=== PATIENT | male | born 1965 | race Asian ===

== ENCOUNTER 2016-12-10 22:22 | Emergency (ER) | payer MEDICAID ==
[~2016-12-10] VITALS: Ht 165.1 cm; Wt 72.6 kg
[~2016-12-10 22:22] MED LIST: ATEN50TA OR; BENA40TA7 OR
[2016-12-10] MEDS ORDERED: ACETAMINOPHEN 325 MG TAB PO ONE (23:00)
[2016-12-10] MEDS ORDERED: cloNIDine HCL 0.1 MG TAB PO ONE (23:00)
[2016-12-11 01:39] LABS: Basophils # (auto) 0.2 uL; Basophils % (auto) 1.8 % (0.0-2.0); Eosinophils # (auto) 0.4 uL; Eosinophils % (auto) 4.2 % (0.0-7.0); Hematocrit 43.5 % (41.0-53.0); Hemoglobin 14.5 g/dL (13.5-17.5); Lymphocytes # (auto) 2.4 uL; Lymphocytes % (auto) 25.2 % (10.0-50.0); Mean Corpuscular Hemoglobin 29.5 pg (28.0-32.0); Mean Corpuscular Hgb Conc. 33.4 g/dL (32.0-36.0); Mean Corpuscular Volume 88.3 fL (80.0-100.0); Mean Platelet Volume 7.9 fL (6.9-10.8); Monocytes # (auto) 0.7 uL; Monocytes % (auto) 6.7 % (0.0-12.0); Neutrophils % (auto) 62.1 % (37.0-80.0); Nucleated Red Blood Cells % 0.1 %; Platelet Count (auto) 287 10^3/uL (140-450); Red Cell Distribution Width 13.8 % (11.8-14.3); White Blood Cell 9.7 10^3/uL (4.4-10.8)
[2016-12-11 01:47] LABS: INR 0.87 (0.9-1.15); Partial Thromboplastin Time 29.2 sec (22.64-33.71); Prothrombin Time 9.5 sec (9.37-12.3)
[2016-12-11 01:57] LABS: Albumin 3.6 g/dL (3.4-5.0); BUN/Creatinine Ratio 12.8; Potassium 4.5 mmol/L (3.5-5.1)
[2016-12-11 02:00] LABS: Bilirubin, Total 0.3 mg/dL (0.2-1.0); Total Protein 7.7 g/dL (6.4-8.2)
[2016-12-11] MEDS ORDERED: hydrALAZINE HCL 20 MG/ML VL IV ONE (02:15)
[2016-12-11] MEDS ORDERED: HYDROcodone-ACET 5/325MG TAB PO ONE (03:00)
[2016-12-11 03:02] VITALS: BP 150/110
== END 2016-12-11 04:09 | disposition home or self-care (01) ==
LOC: ER 22:30
DX: I10 Essential (primary) hypertension (principal); R51 Headache; F17.210 Nicotine dependence, cigarettes, uncomplicated
CPT/HCPCS: 36415; 70450; 80053; 85025; 85610; 85730; 93005; 96374; 99285; J0360

== ENCOUNTER 2017-02-02 12:35 | Emergency (ER) | payer MEDICAID ==
[~2017-02-02] VITALS: Ht 165.1 cm; Wt 72.6 kg
[2017-02-02] MEDS ORDERED: COCAINE HCL 4% TOP SOL 4ML TOP ONE ×3 (12:49→13:30)
[2017-02-02] MEDS ORDERED: SODIUM CHLORIDE 0.9% 1,000 ML IV ONE (13:00)
[2017-02-02] MEDS ORDERED: hydrALAZINE HCL 20 MG/ML VL IV ONE (13:15)
[2017-02-02 13:18] LABS: Basophils # (auto) 0.1 uL; Basophils % (auto) 1.5 % (0.0-2.0); Eosinophils # (auto) 0.3 uL; Hematocrit 41.3 % (41.0-53.0); Hemoglobin 14.1 g/dL (13.5-17.5); Lymphocytes # (auto) 2.6 uL; Lymphocytes % (auto) 27.6 % (10.0-50.0); Mean Corpuscular Hemoglobin 29.9 pg (28.0-32.0); Mean Corpuscular Hgb Conc. 34.1 g/dL (32.0-36.0); Mean Corpuscular Volume 87.7 fL (80.0-100.0); Mean Platelet Volume 7.8 fL (6.9-10.8); Monocytes # (auto) 0.6 uL; Monocytes % (auto) 6.2 % (0.0-12.0); Neutrophils # (auto) 5.8 uL; Neutrophils % (auto) 61.7 % (37.0-80.0); Nucleated Red Blood Cells % 0.1 %; Platelet Count (auto) 296 10^3/uL (140-450); Red Cell Distribution Width 13.6 % (11.8-14.3); White Blood Cell 9.3 10^3/uL (4.4-10.8)
[2017-02-02 13:31] LABS: INR 0.87 (0.9-1.15); Partial Thromboplastin Time 28.5 sec (22.64-33.71); Prothrombin Time 9.5 sec (9.37-12.3)
[2017-02-02] MEDS ORDERED: ONDANSETRON HCL 4 MG/2 ML VIAL IV ONE (14:00)
[2017-02-02] MEDS ORDERED: HYDROmorphone HCL 2 MG/ML VL IV ONE (14:00)
[2017-02-02] MEDS ORDERED: cloNIDine HCL 0.1 MG TAB PO ONE (14:00)
[2017-02-02 14:03] LABS: Albumin 3.6 g/dL (3.4-5.0); BUN/Creatinine Ratio 13.3; Bilirubin, Total 0.5 mg/dL (0.2-1.0); Calcium 8.3 mg/dL (8.5-10.1); Total Protein 7.5 g/dL (6.4-8.2)
[2017-02-02] MEDS ORDERED: POTASSIUM CHL 20MEQ/50ML 50 ML IV ONE (14:30)
[2017-02-02] MEDS ORDERED: LABETALOL HCL 5 MG/ML ML 20ML VIAL IV ONE (14:30)
[2017-02-02 16:49] VITALS: BP 135/82
== END 2017-02-02 17:04 | disposition home or self-care (01) ==
LOC: ER 12:35
DX: R04.0 Epistaxis (principal); I10 Essential (primary) hypertension; F17.210 Nicotine dependence, cigarettes, uncomplicated
CPT/HCPCS: 30901; 36415; 80053; 85025; 85610; 85730; 86850; 86900; 86901; 96365; 96366; 96375; 99285; J0360; J1170; J2405

== ENCOUNTER 2018-03-28 17:01 | Emergency (ER) | payer MEDICAID ==
[~2018-03-28] VITALS: Ht 162.6 cm; Wt 72.6 kg
[2018-03-28] MEDS ORDERED: cloNIDine HCL 0.1 MG TAB PO ONE ×2 (17:30→19:15)
[2018-03-28 18:45] LABS: Basophils # (auto) 0.1 uL; Basophils % (auto) 0.6 % (0.0-2.0); Eosinophils # (auto) 0 uL; Eosinophils % (auto) 0.2 % (0.0-7.0); Hematocrit 47.4 % (41.0-53.0); Hemoglobin 15.9 g/dL (13.5-17.5); Lymphocytes % (auto) 10.6 % (10.0-50.0); Mean Corpuscular Hemoglobin 29.6 pg (28.0-32.0); Mean Corpuscular Hgb Conc. 33.6 g/dL (32.0-36.0); Mean Corpuscular Volume 87.9 fL (80.0-100.0); Monocytes # (auto) 0.4 uL; Monocytes % (auto) 3.6 % (0.0-12.0); Neutrophils # (auto) 8.3 uL; Platelet Count (auto) 271 10^3/uL (140-450); Red Blood Cells 5.39 10^6/uL (4.5-5.90); Red Cell Distribution Width 13.5 % (11.8-14.3); White Blood Cell 9.8 10^3/uL (4.4-10.8)
[2018-03-28] MEDS ORDERED: cloNIDine 0.2 mg/24hr 7DAY PATCH TD ONE (18:45)
[2018-03-28] MEDS ORDERED: ONDANSETRON HCL 4 MG/2 ML VIAL IV ONE (19:30)
[2018-03-28] MEDS ORDERED: MORPHINE SULFATE 10 MG/ML INJ 1ML SDV IV ONE (19:30)
[2018-03-28 19:51] LABS: Chloride 104 mmol/L (98-107); Potassium 3.5 mmol/L (3.5-5.1); Sodium 138 mmol/L (136-145)
[2018-03-28 19:59] LABS: Alanine Aminotransferase 21 U/L (16-61); Albumin 3.8 g/dL (3.4-5.0); Alkaline Phosphatase 117 U/L (45-117); Anion Gap 7 (5-15); Aspartate Aminotransferase 18 U/L (15-37); BUN/Creatinine Ratio 11.8; Bilirubin, Total 0.5 mg/dL (0.2-1.0); Blood Urea Nitrogen 15 mg/dL (7-18); Calcium 8.4 mg/dL (8.5-10.1); Carbon Dioxide 27 mmol/L (21-32); GFR African American 77 mL/min; GFR Non-African American 64 mL/min; Glucose 120 mg/dL (74-106); Total Protein 8.2 g/dL (6.4-8.2)
[2018-03-28] MEDS ORDERED: IOHEXOL 350 MG/ML 100ML IJ ONE (20:52)
[2018-03-28] MEDS ORDERED: LABETALOL HCL 5 MG/ML ML 20ML VIAL IV ONE (21:30)
[2018-03-28 22:48] VITALS: BP 146/107
== END 2018-03-28 23:00 | disposition short-term general hospital (02) ==
LOC: ER 17:05
DX: I72.8 Aneurysm of other specified arteries (principal); I16.0 Hypertensive urgency; I10 Essential (primary) hypertension; F17.210 Nicotine dependence, cigarettes, uncomplicated
CPT/HCPCS: 36415; 70450; 70496; 70498; 80053; 84484; 85025; 93005; 94761; 96374; 96375; 99285; J2270; J2405; Q9967

== ENCOUNTER 2018-06-07 11:25 | Emergency (ER) | payer MEDICAID ==
[~2018-06-07] VITALS: Ht 165.1 cm; Wt 77.1 kg
[2018-06-07 12:39] LABS: Basophils # (auto) 0.1 uL; Basophils % (auto) 1.2 % (0.0-2.0); Eosinophils # (auto) 0.3 uL; Eosinophils % (auto) 3.7 % (0.0-7.0); Hematocrit 39.3 % (41.0-53.0); Hemoglobin 13.1 g/dL (13.5-17.5); Lymphocytes # (auto) 1.8 uL; Lymphocytes % (auto) 20.4 % (10.0-50.0); Mean Corpuscular Hemoglobin 29.5 pg (28.0-32.0); Mean Corpuscular Hgb Conc. 33.3 g/dL (32.0-36.0); Mean Corpuscular Volume 88.7 fL (80.0-100.0); Monocytes # (auto) 0.8 uL; Monocytes % (auto) 8.5 % (0.0-12.0); Neutrophils # (auto) 5.9 uL; Neutrophils % (auto) 66.2 % (37.0-80.0); Nucleated Red Blood Cells % 0.1 %; Platelet Count (auto) 270 10^3/uL (140-450); Red Blood Cells 4.43 10^6/uL (4.5-5.90); Red Cell Distribution Width 13.7 % (11.8-14.3); White Blood Cell 8.8 10^3/uL (4.4-10.8)
[2018-06-07] MEDS ORDERED: IOHEXOL 350 MG/ML 100ML IJ ONE (12:48)
[2018-06-07 12:56] LABS: BUN/Creatinine Ratio 16.4; Calcium 8.3 mg/dL (8.5-10.1); Potassium 3.8 mmol/L (3.5-5.1)
[2018-06-07 14:15] VITALS: BP 137/93
== END 2018-06-07 14:50 | disposition home or self-care (01) ==
LOC: ER 11:25
DX: M54.2 Cervicalgia (principal); R51 Headache; I10 Essential (primary) hypertension; F17.210 Nicotine dependence, cigarettes, uncomplicated
CPT/HCPCS: 36415; 70496; 70498; 80048; 85025; 93005; 99284; Q9967

== ENCOUNTER 2022-02-19 00:16 | Emergency (ER) | payer MEDICAID ==
[~2022-02-19] VITALS: Ht 162.6 cm; Wt 75.0 kg
[~2022-02-19 00:16] MED LIST changes: -BENA40TA7 OR; +BENA40TA8 OR
[2022-02-19] MEDS ORDERED: METOCLOPRAMIDE HCL 5MG/ml INJ 2ml VIAL IM ONE (01:00)
[2022-02-19] MEDS ORDERED: KETOROLAC TROMETH 30 MG/ML 1ML VIAL IM ONE (01:00)
[2022-02-19] MEDS ORDERED: diphenhdrAMINE HCL 50 MG/1 ML VL IM ONE (01:00)
[2022-02-19] MEDS ORDERED: cloNIDine HCL 0.1 MG TAB PO ONE (01:00)
[2022-02-19 02:03] LABS: Basophils # (auto) 0.1 10 ^3/uL (0-0.2); Basophils % (auto) 0.8 % (0.0-2.0); Eosinophils # (auto) 0.3 10 ^3/uL (0-0.8); Eosinophils % (auto) 2.1 % (0.0-7.0); Hematocrit 48.8 % (41.0-53.0); Hemoglobin 15.7 g/dL (13.5-17.5); Lymphocytes # (auto) 1.5 10 ^3/uL (0.4-5.4); Lymphocytes % (auto) 10.7 % (10.0-50.0); Mean Corpuscular Hgb Conc. 32.3 g/dL (32.0-36.0); Monocytes # (auto) 0.8 10 ^3/uL (0-1.3); Monocytes % (auto) 5.3 % (0.0-12.0); Neutrophils # (auto) 11.6 10 ^3/uL (1.6-8.6); Neutrophils % (auto) 81.1 % (37.0-80.0); Red Blood Cells 5.42 10^6/uL (4.5-5.90); Red Cell Distribution Width 13.8 % (11.8-14.3); White Blood Cell 14.3 10^3/uL (4.4-10.8)
[2022-02-19 02:26] LABS: Potassium 3.5 mmol/L (3.5-5.1)
[2022-02-19 02:30] LABS: Albumin 3.5 g/dL (3.4-5.0); BUN/Creatinine Ratio 11.8; Calcium 8.9 mg/dL (8.5-10.1)
[2022-02-19 02:41] LABS: Bilirubin, Total 0.5 mg/dL (0.2-1.0); Total Protein 7.4 g/dL (6.4-8.2)
[2022-02-19 08:28] VITALS: BP 141/100
[2022-02-19] MEDS ORDERED: CLON0.1T PO (09:38)
[2022-02-19] MEDS ORDERED: HYDROcodone-ACET 10/325MG TAB PO ONE (10:15)
== END 2022-02-19 12:28 | disposition home or self-care (01) ==
LOC: ER 00:16
DX: G93.0 Cerebral cysts (principal); F17.210 Nicotine dependence, cigarettes, uncomplicated; Z98.890 Other specified postprocedural states
CPT/HCPCS: 36415; 70450; 71045; 80053; 84484; 85025; 96372; 99285; J1200; J1885; J2765

== ENCOUNTER 2023-05-29 21:49 | Emergency (ER) | payer MEDICAID ==
[~2023-05-29] VITALS: Ht 167.6 cm; Wt 72.6 kg
[~2023-05-29 21:49] MED LIST changes: +BENA40TA70 OR; -BENA40TA8 OR; +CLON0.1T PO
[2023-05-29] MEDS: IOHEXOL 350 MG/ML 100ML IJ ONE (22:19)
[2023-05-29 22:28] LABS: Basophils # (auto) 0.1 10 ^3/uL (0-0.2); Eosinophils # (auto) 0.4 10 ^3/uL (0-0.8); Eosinophils % (auto) 3.1 % (0.0-7.0); Hematocrit 38.2 % (41.0-53.0); Hemoglobin 12.5 g/dL (13.5-17.5); Lymphocytes % (auto) 25.4 % (10.0-50.0); Mean Corpuscular Hemoglobin 28.9 pg (28.0-32.0); Mean Corpuscular Hgb Conc. 32.6 g/dL (32.0-36.0); Mean Corpuscular Volume 88.7 fL (80.0-100.0); Monocytes # (auto) 0.8 10 ^3/uL (0-1.3); Neutrophils # (auto) 7.4 10 ^3/uL (1.6-8.6); Neutrophils % (auto) 63.5 % (37.0-80.0); Nucleated Red Blood Cells % 0.1 %; Red Blood Cells 4.31 10^6/uL (4.5-5.90); Red Cell Distribution Width 14.3 % (11.8-14.3); White Blood Cell 11.7 10^3/uL (4.4-10.8)
[2023-05-29 22:44] LABS: Alanine Aminotransferase 23 U/L (7-40); Albumin 3.7 g/dL (3.2-4.8); Alkaline Phosphatase 87 U/L (46-116); Anion Gap 7 (5-15); Aspartate Aminotransferase 26 U/L (13-40); BUN/Creatinine Ratio 9.3 (10.0-20.0); Bilirubin, Total 0.8 mg/dL (0.2-1.0); Blood Urea Nitrogen 18 mg/dL (9-23); Calcium 8.7 mg/dL (8.5-10.1); Carbon Dioxide 28 mmol/L (20-30); Chloride 106 mmol/L (98-107); Glucose 119 mg/dL (74-106); Potassium 2.6 mmol/L (3.5-5.1); Sodium 141 mmol/L (136-145); Total Protein 6.3 g/dL (5.7-8.2)
[2023-05-29 23:00] VITALS: PULSE 82; RESP 18; O2SAT 94
[2023-05-29] MEDS: POTASSIUM EFFERVESENT TAB 25 MEQ PO ONE (23:42)
[2023-05-30] MEDS: ONDANSETRON HCL 4 MG/2 ML VIAL IV ONE (00:31)
[2023-05-30] MEDS: MORPHINE SULFATE INJ 2 MG/ml SYRG IV ONE ×2 (00:32→02:04)
[2023-05-30] MEDS: LABETALOL HCL 5 MG/ML 4ML SYRINGE IV ONE ×3 (01:03→01:10)
[2023-05-30] MEDS: ESMOLOL HCL-NS 10MG/ML 250 ML IV SCH ×2 (01:08→01:17)
[2023-05-30] MEDS: ESMOLOL HCL (10MG/ML) 10 ML VIAL IV ONE (01:17)
[2023-05-30 02:40] VITALS: TEMP 97.3; O2SAT 97
[2023-05-30 02:47] VITALS: BP 133/77; PULSE 73; RESP 16
== END 2023-05-30 02:46 | disposition short-term general hospital (02) ==
LOC: EDBD 21:49 → EDUNIT# 21:49 → ER 21:49
DX: I71.03 Dissection of thoracoabdominal aorta (principal); I10 Essential (primary) hypertension; Z79.899 Other long term (current) drug therapy
CPT/HCPCS: 36415; 71045; 71275; 75635; 80053; 83605; 83880; 84484; 85025; 85379; 87040; 93005; 96365; 96375; 96376; 99285; J2270; J2405; J3490; Q9967

== ENCOUNTER 2024-02-10 21:01 | Emergency (ER) | payer MEDICAID ==
[~2024-02-10] VITALS: Ht 167.6 cm; Wt 81.8 kg
[~2024-02-10 21:01] MED LIST changes: -BENA40TA70 OR; +BENA40TA71 OR
--- NOTE | 2024-02-10 21:23 | ED.PDOC ---
History of Present Illness HPI Comments 58 y/o M, with a Hx of aortic disection and HTNl, presents with c/o non- radiating, left-sided chest pain, today. Patient endorses on sudden and unprovoked onset 5/10, intermittent pain underneath his left-breast at 1810. Patient comments on similar pain in the past when he had an "aortic dissection" that required surgical intervention at [facility]. Patient reports no additional relevant or pertinent Hx along with any recent stressors, injuries, sick contact, travel, spoiled food intake, or substance use/exposure. Patient denies having any shortness of breath, palpitations, nausea, vomiting, fever, chills, or other associated symptoms or modifiers at this time. Time Seen by MD: 21:10 Primary Care Provider: FERNANDO Forrester Notes: Nurses Notes, Medications, Allergies Allergies: Coded Allergies: NO KNOWN ALLERGIES (Unverified , 05/23/11) Home Meds Active Scripts Clonidine Hydrochloride (Clonidine Hcl) 0.1 Mg Tab, 0.1 MG PO BID for 10 Days, #20 MG Prov:STACEY HERNANDEZ MD 02/19/22 Reported Medications Atenolol (Atenolol) 50 Mg Tab, 50 MG OR 05/23/11 Benazepril Hcl (Benazepril Hcl) 40 Mg Tab, 40 MG OR 05/23/11 Information Source: Patient Mode of Arrival: Ambulatory Severity: Moderate Timing: Hours Duration: Intermittent Prehospital treatment: None Past Medical History PAST MEDICAL HISTORY: HTN Past Medical History (Other): aortic disection Surgical History: BKA (right-leg ) Family History Family History: Unknown Social History Smoker: Non-Smoker Alcohol: Occasionally Drugs: Denies Drug Use Lives In: Home Constitutional: denies: chills, diaphoresis, fatigue, fever, malaise, sweats, weakness, others EENTM: denies: blurred vision, double vision, ear bleeding, ear discharge, ear drainage, ear pain, ear ringing, eye pain, eye redness, hearing loss, mouth pain, mouth swelling, nasal discharge, nose bleeding, nose congestion, nose pain, photophobia, tearing, throat pain, throat swelling, voice changes, others Respiratory: denies: cough, hemoptysis, orthopnea, SOB at rest, shortness of breath, SOB with excertion, stridor, wheezing, others Cardiovascular: reports: chest pain; denies: dizzy spells, diaphoresis, Dyspnea on exertion, edema, irregular heart beat, left arm pain, lightheadedness, palpitations, PND, syncope, others Gastrointestinal: denies: abdomen distended, abdominal pain, blood streaked bowels, constipated, diarrhea, dysphagia, difficulty swallowing, hematemesis, melena, nausea, poor appetite, poor fluid intake, rectal bleeding, rectal pain, vomiting, others Genitourinary: denies: burning, dysuria, flank pain, frequency, hematuria, incontinence, penile discharge, penile sore, pain, testicle pain, testicle swelling, urgency, others Neurological: denies: dizziness, fainting, headache, left sided numbness, left sided weakness, numbness, paresthesia, pre-existing deficit, right sided numbness, right sided weakness, seizure, speech problems, tingling, tremors, weakness, others Musculoskeletal: denies: back pain, gout, joint pain, joint swelling, muscle pain, muscle stiffness, neck pain, others Integumetry: denies: bruises, change in color, change in hair/nails, dryness, laceration, lesions, lumps, rash, wounds, others Allergic/Immunocompromised: denies: Difficulty Healing, Frequent Infections, Hives, Itching, others Hematologic/Lymphatic: denies: anemia, blood clots, easy bleeding, easy bruising, swollen glands, others Endocrine: denies: excessive hunger, excessive sweating, excessive thirst, excessive urination, flushing, intolerance to cold, intolerance to heat, unexplained weight gain, unexplained weight loss, others Psychiatric: denies: anxiety, bipolar disorder, depression, hopeless, panic disorder, schizophrenia, sleepless, suicidal, others All Other Systems: Reviewed and Negative Physical Exam General Appearance: Moderate Distress, Normal HEENT: Normal ENT Inspection, Pharynx Normal, TMs Normal Neck: Full Range of Motion, Non-Tender, Normal, Normal Inspection Respiratory: Chest Non-Tender, Lungs Clear, No Accessory Muscle Use, No Respiratory Distress, Normal Breath Sounds Cardiovascular: No Edema, No JVD, No Murmur, No Gallop, Normal Peripheral Pulses, Regular Rate/Rhythm, Other (old thoracotomy scar noted) Breast Exam: Deferred Gastrointestinal: Non Tender, Soft Genitalia: Deferred Pelvic: Deferred Rectal: Deferred Extremities: No calf tenderness, Normal capillary refill, Normal inspection, Normal range of motion, Non-tender, No pedal edema Musculoskeletal : Apperance: Normal Neurologic: Alert, 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 Was a procedure done?: No EKG EKG : Pulse Rate (adult): 66 [place]: Normal Cardiac Rhythm: NSR Block: None Hypertrophy: None ST: Normal Differential Dx Considerations may include: AR, ACS, aortic dissection, angina, costochondritis, pericarditis, anxiety, viral syndrome X-Ray, Labs, Meds, VS Vital Signs Date Time Temp Pulse Resp B/P (MAP) Pulse Ox O2 Delivery O2 Flow Rate FiO2 02/11/24 01:50 139/77 02/10/24 23:27 57 16 139/77 02/10/24 22:57 64 16 132/66 02/10/24 22:10 62 02/10/24 21:23 66 02/10/24 21:09 98.2 66 18 141/75 (97) 96 02/10/24 21:09 66 Lab Test 02/10/24 22:20 02/10/24 21:15 Range/Units Troponin I High Sensitivity 11 11 </=54 ng/L White Blood Count 9.1 4.4-10.8 10^3/uL Red Blood Count 4.60 4.5-5.90 10^6/uL Hemoglobin 12.2 L 13.5-17.5 g/dL Hematocrit 37.4 L 41.0-53.0 % Mean Corpuscular Volume 81.2 80.0-100.0 fL Mean Corpuscular Hemoglobin 26.6 L 28.0-32.0 pg Mean Corpuscular Hemoglobin Concent 32.7 32.0-36.0 g/dL Red Cell Distribution Width 16.9 H 11.8-14.3 % Platelet Count 378 140-450 10^3/uL Mean Platelet Volume 7.7 6.9-10.8 fL Neutrophils (%) (Auto) 55.2 37.0-80.0 % Lymphocytes (%) (Auto) 26.2 10.0-50.0 % Monocytes (%) (Auto) 9.1 0.0-12.0 % Eosinophils (%) (Auto) 5.1 0.0-7.0 % Basophils (%) (Auto) 4.4 H 0.0-2.0 % Neutrophils # (Auto) 5.0 1.6-8.6 10 ^3/uL Lymphocytes # (Auto) 2.4 0.4-5.4 10 ^3/uL Monocytes # (Auto) 0.8 0-1.3 10 ^3/uL Eosinophils # (Auto) 0.5 0-0.8 10 ^3/uL Basophils # (Auto) 0.4 H 0-0.2 10 ^3/uL Nucleated Red Blood Cells 0.0 % Prothrombin Time 10.2 9.3-11.8 sec Prothrombin Time INR 0.96 0.9-1.15 Activated Partial Thromboplast Time 31.7 24.5-34.5 SEC Sodium Level 141 136-145 mmol/L Potassium Level 3.7 3.5-5.1 mmol/L Chloride Level 111 H 98-107 mmol/L Carbon Dioxide Level 21 20-31 mmol/L Anion Gap 9 5-15 Blood Urea Nitrogen 16 9-23 mg/dL Creatinine 1.60 H 0.700-1.30 mg/dL Glomerular Filtration Rate Calc 50 >90 mL/min BUN/Creatinine Ratio 10.0 10.0-20.0 Serum Glucose 113 H 74-106 mg/dL Calcium Level 9.8 8.7-10.4 mg/dL Total Bilirubin 0.4 0.2-1.0 mg/dL Aspartate Amino Transferase (AST) 12 L 13-40 U/L Alanine Aminotransferase (ALT) 12 7-40 U/L Alkaline Phosphatase 144 H 46-116 U/L B-Type Natriuretic Peptide 131.12 0-100 pg/mL Total Protein 7.9 5.7-8.2 g/dL Albumin 4.6 3.2-4.8 g/dL Current Medications Medications (Trade) Dose Ordered Sig/Shabbir Route Start Time Stop Time Status Last Admin Morphine Sulfate 2 mg ONCE ONCE IM 02/10/24 22:30 02/10/24 22:31 DC 02/10/24 22:57 Ondansetron HCl (Zofran) 4 mg ONCE ONCE IM 02/10/24 22:30 02/10/24 22:31 DC 02/10/24 22:57 Hydralazine HCl (Apresoline Injection) 10 mg ONCE ONCE IV 02/11/24 01:30 02/11/24 01:31 DC 02/11/24 01:[address] [address] Ph: [phone] DIAGNOSTIC IMAGING Diagnostic Imaging Report : [id number] Signed PATIENT: ALEX WESTFALL ACCT: [id number] UNIT: [id number] : 1965 LOC: ER ROOM / BED: / AGE / SEX: 58 / M ADM STATUS: REG ER SERVICE 02 ORDERING PHYSICIAN: LUCINA MARTINEZ MD PROCEDURE(s): CXRP - CHEST PORTABLE REASON: chest pain ORDER NUMBER(s): [id number], ACCESSION NUMBER(s): [id number] CHEST RADIOGRAPH Indication: chest pain Technique: Single frontal view of the chest was obtained Comparison: XY CHEST PORTABLE on DOS: 05/29/23, CHEST XRAY 1 VIEW on DOS: 02/19/22 FINDINGS: Lines and Tubes: None Lungs: Clear Pleura: No effusion. No pneumothorax. Cardiomediastinal contours: Unremarkable Bones: Unremarkable IMPRESSION: 1. Clear lungs. ATED BY: STEPAN CARSON DO DICTATED DATE/TIME: 02/10/242200 SIGNED BY: STEPAN CARSON DO SIGNED DATE/TIME: 02/10/242200 CC: Time of 1ST Reevaluation: 21:40 Reevaluation 1ST: Unchanged Time of 2ND Reevaluation: 01:58 Reevaluation 2ND: Unchanged Patient Education/Counseling: Diagnosis, Treatment Family Education/Counseling: No Family Present Additional Information I personally reviewed and interpreted the EKG, CT , xray and lab findings Departure 1 Departure Time of Disposition: 01:54 Impression: Primary Impression: Aortic dissection, thoracoabdominal Disposition: [facility] Condition: Critical Critical Care Note Critical Care Time?: Yes Critical care comment: Total critical care time: Approximately 36 minutes Due to a high probability of clinically significant, life threatening deterioration, the patient required my highest level of preparedness to intervene emergently and I personally spent this critical care time directly and personally managing the patient. This critical care time included obtaining a history; examining the patient; pulse oximetry; ordering and review of studies; arranging urgent treatment with development of a management plan; evaluation of patient's response to treatment; frequent reassessment; and, discussions with other providers. Stability Stability form required: No Heart Score Heart Score: Heart Score Response (Comments) Value History Moderate Suspicious 1 EKG Normal 0 Age 45-64 1 Risk Factors 1 or 2 risk factors 1 Troponin Normal limit 0 Total 3 I personally scribed for LUCINA MARTINEZ MD ([email or web address]) on 02/10/24 at 21:23. Electronically submitted by Chip Munoz ([email or web address]). I personally scribed for LUCINA MARTINEZ MD ([email or web address]) on 02/10/24 at 22:07. Electronically submitted by Chip Munoz ([email or web address]). LUCINA MARTINEZ MD Feb 10, 2024 21:23
[2024-02-10] MEDS: IOHEXOL 350 MG/ML 100ML IJ ONE (21:29)
[2024-02-10 21:39] LABS: Eosinophils # (auto) 0.5 10 ^3/uL (0-0.8); Eosinophils % (auto) 5.1 % (0.0-7.0); Lymphocytes # (auto) 2.4 10 ^3/uL (0.4-5.4); Mean Corpuscular Hemoglobin 26.6 pg (28.0-32.0); Monocytes # (auto) 0.8 10 ^3/uL (0-1.3)
[2024-02-10 21:40] LABS: Basophils # (auto) 0.4 10 ^3/uL (0-0.2); Basophils % (auto) 4.4 % (0.0-2.0); Hematocrit 37.4 % (41.0-53.0); Hemoglobin 12.2 g/dL (13.5-17.5); Lymphocytes % (auto) 26.2 % (10.0-50.0); Mean Corpuscular Hgb Conc. 32.7 g/dL (32.0-36.0); Mean Corpuscular Volume 81.2 fL (80.0-100.0); Monocytes % (auto) 9.1 % (0.0-12.0); Neutrophils % (auto) 55.2 % (37.0-80.0); Platelet Count (auto) 378 10^3/uL (140-450); Red Cell Distribution Width 16.9 % (11.8-14.3); White Blood Cell 9.1 10^3/uL (4.4-10.8)
[2024-02-10 21:58] LABS: Alanine Aminotransferase 12 U/L (7-40); Albumin 4.6 g/dL (3.2-4.8); Alkaline Phosphatase 144 U/L (46-116); Anion Gap 9 (5-15); Aspartate Aminotransferase 12 U/L (13-40); Bilirubin, Total 0.4 mg/dL (0.2-1.0); Blood Urea Nitrogen 16 mg/dL (9-23); Calcium 9.8 mg/dL (8.7-10.4); Carbon Dioxide 21 mmol/L (20-31); Chloride 111 mmol/L (98-107); Glucose 113 mg/dL (74-106); Potassium 3.7 mmol/L (3.5-5.1); Sodium 141 mmol/L (136-145); Total Protein 7.9 g/dL (5.7-8.2)
--- NOTE | 2024-02-10 22:03 | DVH ---
CHEST RADIOGRAPH Indication: chest pain Technique: Single frontal view of the chest was obtained Comparison: XY CHEST PORTABLE on DOS: 05/29/23, CHEST XRAY 1 VIEW on DOS: 02/19/22 FINDINGS: Lines and Tubes: None Lungs: Clear Pleura: No effusion. No pneumothorax. Cardiomediastinal contours: Unremarkable Bones: Unremarkable IMPRESSION: 1. Clear lungs.
[2024-02-10 22:04] LABS: INR 0.96 (0.9-1.15); Partial Thromboplastin Time 31.7 SEC (24.5-34.5); Prothrombin Time 10.2 sec (9.3-11.8)
[2024-02-10] MEDS: MORPHINE SULFATE INJ 2 MG/ml SYRG IM ONE (22:57)
[2024-02-10] MEDS: ONDANSETRON HCL 4 MG/2 ML VIAL IM ONE (22:57)
--- NOTE | 2024-02-10 23:03 | DVH ---
History: chest pain h/o dissection surgery Comparison: None TECHNIQUE: Using a slice CT scanner volumetric data acquisition of chest, abdomen and pelvis was obta ined following intravenous administration of intravenous 100 ml contrast without any reported adverse effects. Axial images were reconstructed and additional sagittal and coronal images were reformatted . 3D/MIP images were performed and reviewed for reporting. Radiation Dose Information: CT Dose: CTDI volume is 21.39 mGy. Dose-length product is 1341.97 mGy*cm Findings: Vascular: Aortic dissection is seen arising from the distal aortic arch and extending all the way to the right common iliac and proximal external iliac artery. The celiac artery, SMA, and bilateral renal arteries appear to arise from the true lumen. The VALERIA appears to arise from the false lumen. There are postsurgical changes in the ascending aorta with high density surgical material , compatibl e with prior repair. Chest: Pulmonary Arteries: There are no filling defects within main pulmonary arteries. There is normal dim ensional of main PA. Lungs: There is no peripheral pulmonary infarction, consolidation, pleural effusion, or right heart s train. There is no pneumothorax or pneumomediastinum. Aorta: There is normal caliber of thoracic aorta without evidence of aortic dissection, intramural he matoma or aneurysm. Lymph Nodes: There is no significant intrathoracic or axillary lymphadenopathy on CT size criteria. Lower Neck: Visualized portions of the thyroid gland are unremarkable. Mediastinum: Heart size is normal. There is no pericardial effusion. Musculoskeletal: No aggressive focal bony lesions, acute fractures or dislocation. Chest wall: Unremarkable Abdomen and Pelvis: Liver: The liver is normal in size. No focal lesions. Normal hepatic vascular enhancement. Gallbladder and Biliary Tree: Unremarkable Spleen: Unremarkable Pancreas: The pancreas is normal in appearance without focal lesions or abnormal enhancement. Adrenal Glands: Unremarkable Kidneys: Kidneys demonstrate normal symmetric enhancement without focal lesions, calculi or hydroneph rosis. Bladder: Unremarkable Bowel: The stomach is grossly normal in appearance. Small bowel and colon are normal in caliber and d istribution. The appendix is not visualized; however, no secondary findings of acute appendicitis jonathan ntified. Ascites: Absent Lymphadenopathy: No mesenteric, retroperitoneal or periportal lymphadenopathy. Abdominal Wall and Mesentery: Unremarkable. Pelvic Organs: Unremarkable Musculoskeletal: No aggressive focal bony lesions, acute fractures or dislocation. IMPRESSION: 1. Type B aortic dissection extending from the distal aortic arch all the way to the right proximal e xternal iliac artery. The celiac artery, SMA, and bilateral renal arteries appear to arise from the t rue lumen. The VALERIA arises from the false lumen. 2. Postsurgical changes seen in the ascending aorta, suggestive of prior repair. 3. All CT scans at this medical facility are performed using dose modulation techniques as appropriat e to a performed exam including the following: Automated exposure control was utilized; adjustment of the MA and/or KV according to patient size; and use of iterative reconstruction technique.
[2024-02-11] MEDS ORDERED: ESMOLOL HCL-NS 10MG/ML 250 ML IV SCH (01:45)
[2024-02-11] MEDS: hydrALAZINE HCL 20 MG/ML VL IV ONE ×2 (01:50→04:30)
[2024-02-11 04:03] VITALS: PULSE 62; RESP 16; O2SAT 94
[2024-02-11 04:08] VITALS: BP 110/58; PULSE 62; RESP 15; TEMP 98.5; O2SAT 97
[2024-02-11] MEDS: hydrALAZINE HCL 20 MG/ML VL ONE (04:30)
--- NOTE | 2024-02-11 06:58 | ECG ---
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
--- NOTE | 2024-02-11 07:01 | ECG ---
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
== END 2024-02-11 04:32 | disposition short-term general hospital (02) ==
LOC: ER 21:01
DX: I71.03 Dissection of thoracoabdominal aorta (principal); R07.89 Other chest pain; I10 Essential (primary) hypertension; Z89.511 Acquired absence of right leg below knee
CPT/HCPCS: 36415; 71045; 74175; 80053; 83880; 84484; 85025; 85610; 85730; 93005; 96372; 96374; 96376; 99285; J0360; J2270; J2405; Q9967